=== PATIENT | male | born 1965 | race Caucasian/White ===

== ENCOUNTER → 2016-04-28 | Outpatient (CLI) | payer MEDICARE ==
[~2016-04-28] MED LIST: ASPIRIN 81MG TA81 MG PO; CYPROHEPTADINE 44 MG PO; DOMPERIDONE1 POW; INSULIN GL100 UNITS/ SC; LANTUS INS100 UNITS/ SC; LIPITOR20 MG PO; MORPHINE SULFAT30 M3 PO; MORPHINE SULFAT60 MG PO; MYSOLINE50 MG PO; Morphine Sulfat30 M1 PO; NOVOLOG100 U/ML SC; OMEPRAZOLE40 MG PO; PHENERGAN 25MG.25 M1 PO; PRAVASTATIN 20M20 MG PO; VICODIN 5/500 T1 TAB PO; VOLTAREN75 MG PO
--- NOTE | 2016-04-28 14:09 | RADIOLOGY REPORT PS360 ---
[facility] History and Indications: CAD, diabetes, tobacco use, shortness of breath and decreased exercise tolerance. Procedure: Patient received 0.4 mg of Lexiscan resting heart rate was 78 beats per 107/64, with Lexiscan maximum heart rate achieved was 84 beats per which is less than 85% of maximum predicted heart rate and a blood pressure was 98/61, with Lexiscan patient complained of mild stomach discomfort. Electrocardiogram: Resting electrocardiogram showed sinus rhythm, with Lexiscan there is less than 1.[address] segment depression noted from the baseline EKG. The EKG portion of the Lexiscan is nondiagnostic. Cardiac stress and resting SPECT images: Cardiac stress and rest SPECT images were obtained using technetium 99 Myoview 10.3 mCi at rest and 31.1 mCi at stress, gated SPECT for analysis of segmental wall motion and calculation of the ejection fraction was also done. Cardiac stress and rest SPECT images show moderate to large size area of severely reduced tracer activity involving the anterior anteroapical, anteroseptal and septal wall which all improves on the resting images suggestive of reversible ischemia in that area, in addition there appears to be a transient ischemic dilatation of the left ventricle is also seen. Computer derived ejection fraction is 59% mild anteroapical and apical wall hypokinesis, right ventricle is moderately enlarged with normal contractility. Conclusion: 1. The EKG portion of the Lexiscan is nondiagnostic. 2. Scintigraphic evidence of reversible ischemia involving the anterior anteroapical, anteroseptal and septal wall, there is transient ischemic dilatation of the left ventricle is also seen, computer derived ejection fraction is 59% with segmental wall motion abnormality described above, right ventricle is moderately enlarged with normal contractility. 3. Abnormal Lexiscan Myoview study.
--- NOTE | 2016-04-28 14:47 | RADIOLOGY REPORT PS360 ---
PROCEDURE: 2-D M-mode and color Doppler study INDICATIONS FOR THE TEST: Chest pain COPD Heart Murmur Tobacco Smoking+ Palpitations Fatigue Syncope Edema Hypertension Diabetes Mellitus+ Rheumatic Fever SOB WEBSTER Obesity Hyperlipidemia+ Family History HD Additional History PAD PATIENT INFORMATION HEIGHT: 74 WEIGHT: 180 GENDER: Male B/P: 107/62 2-D/M-MODE INTERPRETATION: 2-D MEASUREMENTS OBSERVED VALUES IN CMS Right Ventricular Dimension (RVDd) 2.6 Interventricular Septum (Thickness)(IVsd) 0.9 Left Ventricular Internal Dimensions(LVIDd) 3.5 Left Ventricular Posterior Wall (Thickness)(LVPWd) 1.2 Aortic Root 2.1 Aortic Cusp Separation 2.0 Left Atrial Dimensions (LAD) 3.8 2D 1. The left atrium is normal size, the left ventricle is normal size, the left ventricular wall thickness is upper limit of the normal, there is preserved left ventricular systolic function, visually estimated ejection fraction of 55%, with no obvious regional wall motion abnormality. 2. The right atrium and right ventricle are normal size and contractility. 3. The aortic valve is minimally thickened and fibrosed, there is no aortic stenosis. 4. The mitral and tricuspid valve restructure normal. 5. The pulmonic valve not well visualized. 6. No significant pericardial effusion noted. DOPPLER INTERROGATION: Doppler interrogation of the aortic mitral and tricuspid valve reveals presence of trace mitral and tricuspid regurgitation of no hemodynamic significance, tricuspid regurgitant jet velocity insufficient for calculation of the right ventricular systolic pressure. CONCLUSION: 1. Normal left ventricular size, preserved left ventricular systolic function, visually estimated ejection fraction 55% with no obvious regional wall motion abnormality. 2. Trace mitral and tricuspid regurgitation of no hemodynamic significance. 3. No significant pericardial effusion noted.
== END ==
LOC: RAD 07:13
DX: I73.9 Peripheral vascular disease, unspecified (principal); I25.10 Atherosclerotic heart disease of native coronary artery without angina pectoris; E11.9 Type 2 diabetes mellitus without complications; E78.5 Hyperlipidemia, unspecified; J44.9 Chronic obstructive pulmonary disease, unspecified
CPT/HCPCS: A9502; J2785